=== PATIENT | male | born 1935 | race Caucasian/White ===

== ENCOUNTER → 2017-12-14 08:55 | Outpatient (POV) | payer MEDICARE, SELFPAY | PROVIDERS: Visit Provider Internal Medicine | DX: Z00.00 Encounter for general adult medical examination without abnormal findings (principal) ==

== ENCOUNTER → 2018-06-28 10:56 | Outpatient (POV) | payer MEDICARE, SELFPAY | PROVIDERS: Visit Provider Internal Medicine | DX: Z00.00 Encounter for general adult medical examination without abnormal findings (principal) ==

== ENCOUNTER → 2019-03-21 10:19 | Outpatient (POV) | payer MEDICARE, SELFPAY | PROVIDERS: Visit Provider Internal Medicine | DX: Z00.00 Encounter for general adult medical examination without abnormal findings (principal) ==

== ENCOUNTER → 2021-03-26 11:13 | Outpatient (CLI) | payer MEDICARE, SELFPAY | LOC: LAB 11:16 → RAD 11:20 | PROVIDERS: Visit Provider Family Medicine | DX: R11.0 Nausea (principal) ==

== ENCOUNTER 2022-11-01 04:51 | Observation (INO) | payer MEDICARE, SELFPAY ==
[2022-11-01] VITALS (18 sets, daily range): BP systolic 117–182; BP diastolic 65–72; PULSE 56–92; RESP 18–26; TEMP 36.7–37.3; O2SAT 85–97; BMI 22.5; BMI 23.4
--- NOTE | 2022-11-01 04:45 | ECG_ITS ---
APPROVED REPORT Exam: Resting ECG HR:94 bpm ECG Measurements Heart Rate 94 AXES QRSd 135 QRS 91 QT 385 T 74 QTc 437 Conclusion ATRIAL FIBRILLATION WITH ABERRANT CONDUCTION OR VENTRICULAR PREMATURE COMPLEXES BORDERLINE RIGHT AXIS DEVIATION [QRS AXIS > 90] INTRAVENTRICULAR CONDUCTION DELAY [130+ ms QRS DURATION] ANTEROSEPTAL MYOCARDIAL INFARCTION , OF INDETERMINATE AGE [40+ ms Q WAVE IN V1-V4] ABNORMAL ECG UNCONFIRMED REPORT Electronically signed by : Joe Briceno MD 11/02/2022 18:54:24
[2022-11-01 04:46] LABS: ABG Base Excess -4.9 mmol/L (-2.4-2.3); ABG HCO3 21.2 mmhg (22.0-26.0); ABG Oxygen Saturation 96 % (90-100); ABG PCO2 42.4 mmhg (35.0-45.0); ABG PH 7.32 mmol/L (7.35-7.45); ABG PO2 82.9 mmhg (80-100); ABG TCO2 22.5 mmhg (23-27)
--- NOTE | 2022-11-01 04:48 | XR_ITS ---
PROCEDURE INFORMATION: Exam: XR Chest Exam date and time: 11/01/2022 5:07 AM Age: 86 years old Clinical indication: Shortness of breath; Additional info: SOA TECHNIQUE: Imaging protocol: Radiologic exam of the chest. Views: 1 view. COMPARISON: CR CXR1 CHEST-PORTABLE 08/23/2016 9:49 PM FINDINGS: Lungs: Hyperinflation. Chronic interstitial and other changes.. No consolidation. Pleural spaces: Unremarkable. No pleural effusion. No pneumothorax. Heart/Mediastinum: Unremarkable. No cardiomegaly. Bones/joints: Unremarkable. IMPRESSION: No acute findings.
[2022-11-01 04:49] LABS: Oxygen 4LPM %; Source L RADIAL
--- NOTE | 2022-11-01 04:49 | HMH.EDSOB ---
Discharge Plan Disposition Patient Disposition: Admitted As Inpatient Chief Complaint: Shortness of Breath/Dyspnea Prescriptions Prescriptions: No Action lisinopril 20 mg tablet 20 mg PO DAILY Qty: 30 5RF carvedilol [Coreg] 6.25 mg tablet 6.25 mg PO BID Qty: 60 4RF Rx Instructions: give with food (meal/snack) Clinical Impressions Clinical Impression: Acute exacerbation of chronic obstructive airways disease, Congestive heart failure, Diabetes mellitus, CRI (chronic renal insufficiency) Discharge ED Provider: Chetan (ED)Dawood Resp/SOB HPI General Chief Complaint: Shortness of Breath/Dyspnea Stated Complaint: SOA Time Seen by Provider: 11/01/22 04:49 Mode of Arrival: EMS Source of Information: Patient, EMS and Medical Record Limitations: No Limitations Description of Symptoms (Recalled from ER Triage Doc. by RN): PATIENT REPORTS BECAME SOA TONIGHT. PATIENT TOOK A BREATHING TX AT HOME AND DID NOT IMPROVE SO HE CALLED EMS. REPORTS HE HAS HAD A COUGH FOR 3 DAYS. NONPRODUCTIVE. History of Present Illness cough and congestion with hx of copd and o2 at 2l at night and increased sx despite treatment at home MD Complaint: shortness of breath and cough Onset (ago): day(s) Severity: moderate Consistency/Duration: intermittent Known history of: COPD Treatment prior to arrival: oxygen and bronchodilator Related Data Home oxygen amount: 2 liters Previous Rx's Medication Instructions Recorded lisinopril 20 mg tablet 20 mg PO DAILY #30 tabs 08/09/18 carvedilol 6.25 mg tablet (Coreg) 6.25 mg PO BID #60 tabs 05/09/19 Allergies Allergy/AdvReac Type Severity Reaction Status Date / Time No Known Allergies Allergy Unverified 08/31/17 14:44 [facility] Disclaimer: The information contained in this section may have been updated after the patient was seen, as this information can be updated by other users. Medical History (Updated 11/01/22 @ 05:25 by Dawood Benton (ED)MD) Diabetes Emphysema lung Hypertension Surgical History (Updated 11/01/22 @ 05:23 by Katia Dennis RN) History of cholecystectomy Social History Smoking Status: Former smoker alcohol intake: never current occupational status: retired Travel in the last 8 weeks: None ROS Obtained: Yes All systems reviewed & no additional complaints except as documented Physical Exam General General appearance: alert Head Head exam: normocephalic Eye Eye exam: Present PERRL and EOMI ENT ENT exam: Present mucous membranes dry Neck Neck exam: Present trachea midline Respiratory Respiratory exam: Present wheezes and prolonged expiratory phase; Absent respiratory distress Cardiovascular Cardiovascular exam: Present irregular rhythm, systolic murmur and +S4 Abdominal Exam Abdominal exam: Present soft Extremities Exam Extremities exam: Present edema; Absent calf tenderness Neurological Exam Neurological exam: Present alert, oriented X3 and CN II-XII intact; Absent motor sensory deficit Psychiatric Psychiatric exam: Present normal affect Skin Skin exam: Absent rash Medical Decision Making Medical Records Medical records reviewed: Yes I reviewed the patient's medical records. Natanael Inquiry Pt receiving controlled substance: No Vital Signs: 11/01/22 04:42 Temperature 98.5 F Temperature Source Oral Pulse Rate [Right Brachial] 83 Respiratory Rate 24 Blood Pressure [Right Arm] 182/68 H Blood Pressure Mean [Right Arm] 106 Blood Pressure Source [Right Arm] Automatic Cuff Blood Pressure Position [Right Arm] Sitting 02 Sat by Pulse Oximetry 85 L Oxygen Delivery Method Room Air Lab Data Lab results reviewed: Yes I reviewed the patient's lab results. Lab Results 11/01/22 04:40: WBC 8.7, RBC 4.48 L, Hgb 13.1 L, Hct 40.1 L, MCV 89.7, MCH 29.4, MCHC 32.8, RDW 14.0, Plt Count 174, MPV 8.5, Neut % (Auto) 79.0, Lymph % (Auto) 11.3, [place] % (Auto) 6.9, Eos % (Auto) 2.4, Baso % (Auto) 0.4, Neut # (Auto) 6.9, Lymph #
[2022-11-01 04:53] LABS: Coronavirus 19, PCR Not Detected (NotDetected); Influenza A, PCR Not Detected (NotDetected); Influenza B, PCR Not Detected (NotDetected)
[2022-11-01 04:55] LABS: Basophils % 0.4 % (0.1-2.0); Eosinophils # 0.2 K/mm3 (0.0-0.4); Eosinophils % 2.4 % (0.1-12.0); Hematocrit 40.1 % (42.0-52.0); Hemoglobin 13.1 g/dL (14.1-18.0); Lymphocytes % 11.3 % (10-50); Mean Corpuscular HGB Conc 32.8 g/dL (31.8-35.4); Mean Corpuscular Hemoglobin 29.4 pg (27.0-31.2); Mean Corpuscular Volume 89.7 fl (80-94); Mean Platelet Volume 8.5 fl (7.4-10.4); Monocytes # 0.6 K/mm3 (0.1-1.0); Monocytes % 6.9 % (1.7-9.3); Neutrophils # 6.9 K/mm3 (1.8-7.8); Platelet Count 174 K/mm3 (142-424); Red Blood Count 4.48 M/mm3 (4.60-6.20); White Blood Count 8.7 K/mm3 (4.8-10.8)
[2022-11-01 05:00] LABS: Chloride 105 mmol/L (98-107); Sodium 142 mmol/L (136-145)
[2022-11-01 05:01] LABS: Potassium 4.8 mmoL/L (3.5-5.1)
[2022-11-01 05:03] LABS: Alanine Aminotransferase 57 U/L (12-78); Alkaline Phosphatase 209 U/L (38-126); Aspartate Amino Transferase 44 U/L (17-59); Bilirubin,Total 0.8 mg/dl (0.2-1.3); Blood Urea Nitrogen 41 mg/dl (9-20); Creatinine Clearance Estimated 24 mL/min (50-200); Estimated Glomerular Filt Rate 30 ml/min (>60); GFR (African American) 37 ML/MIN (>60)
[2022-11-01 05:04] LABS: Albumin/Globulin Ratio 1.3 (1.1-1.8); Anion Gap 14.8 mEq/L (5-15); Calcium 7.7 mg/dl (8.4-10.2); Carbon Dioxide 27 mmol/L (22.0-30.0); Globulin 3.2 g/dL (1.3-3.2); Glucose 282 mg/dl (74-100); Lactic Acid 1.9 mmol/L (0.7-2.1); Total Protein,Serum 7.2 g/dl (6.3-8.2)
--- NOTE | 2022-11-01 05:12 | PC.NURSE ---
PATIENT GIVEN A URINAL AND INSTRUCTED TO RING OUT FOR ASSISTANCE NEEDED. PATIENT VERBALIZED UNDERSTANDING.
[2022-11-01 05:13] LABS: NT Pro Brain Natriuretic Pep. 8040 pg/mL (0-450)
[2022-11-01 05:16] LABS: Troponin I 0.03 ng/ml (0.00-0.034)
--- NOTE | 2022-11-01 05:24 | PC.NURSE ---
DR. BETTS SPEAKING WITH ISMAEL THRASHER REGARDING ADMISSION
[2022-11-01 05:32] LABS: Hemoglobin A1C 7.7 % (4.0-6.0)
--- NOTE | 2022-11-01 05:53 | EXP.HP ---
History of Present Illness *Admission Date: 11/01/22 *Reason for visit:: shortness of breath *History of present illness: this is an 86-year-old male with a past medical history of COPD, CHF, DM who presents to the emergency department today with complaints of shortness of breath. He is on 2 L of oxygen at baseline and has had increase his oxygen to 4 L. Room air oxygen saturation on arrival was 85%. Patient reports sudden onset of worsening shortness of breath around 230 this a.m. when he awoke from sleep. He does endorse sputum production over the last several days. He also endorses some chest tightness associated with his shortness of breath. He describes bilateral lower extremity edema that has been persistent. He does endorse diuretic use at home and has been compliant. He denies chest pain, fever, nausea, vomiting, diarrhea or any sick contacts. emergency department work-up significant for diffuse wheezing noted on exam. Elevated BNP of 8000. Chest x-ray without any acute findings. He was medicated with steroids and DuoNebs in the emergency department and persistent with diffuse wheezing and shortness of breath. He will be admitted to the hospital service for further evaluation. [facility] Disclaimer: The information contained in this section may have been updated after the patient was seen, as this information can be updated by other users. Medical History (Updated 11/01/22 @ 10:09 by Ruth Bond RN) COPD (chronic obstructive pulmonary disease) Diabetes Emphysema lung Heart failure Hypertension Surgical History History of cholecystectomy Family History (Updated 11/01/22 @ 10:07 by Ruth Bond RN) No significant family history Social History (Updated 11/01/22 @ 10:07 by Ruth Bond RN) Smoking Status: Former smoker alcohol intake: never current occupational status: retired Travel in the last 8 weeks: None Review of Systems Review of Systems Review of systems:: pertinent systems reviewed and negative unless documented below *Cardiovascular Cardiovascular: Reports as per HPI *Respiratory Respiratory: Reports as per HPI Meds Home Medications and Allergies Home Medications Medication Instructions Recorded Confirmed Type ipratropium 0.5 mg-albuterol 3 mg 3 ml inhalation Q4H Breathing 11/01/22 11/01/22 History (2.5 mg base)/3 mL nebulization problems soln New Prescriptions to Start Prescriptions: Allergies Allergy/AdvReac Type Severity Reaction Status Date / Time No Known Allergies Allergy Unverified 08/31/17 14:44 Exam Data for Last 24 hours Vital signs and Labs for Last 24 Hours: Temp Pulse Resp BP Pulse Ox 98.5 F 82 20 172/72 H 97 11/01/22 04:42 11/01/22 05:31 11/01/22 05:31 11/01/22 05:31 11/01/22 05:47 Laboratory Results - last 24 hr 11/01/22 04:40: WBC 8.7, RBC 4.48 L, Hgb 13.1 L, Hct 40.1 L, MCV 89.7, MCH 29.4, MCHC 32.8, RDW 14.0, Plt Count 174, MPV 8.5, Neut % (Auto) 79.0, Lymph % (Auto) 11.3, [place] % (Auto) 6.9, Eos % (Auto) 2.4, Baso % (Auto) 0.4, Neut # (Auto) 6.9, Lymph # (Auto) 1.0, [place] # (Auto) 0.6, Eos # (Auto) 0.2, Baso # (Auto) 0.0 11/01/22 04:40: Sodium 142, Potassium 4.8, Chloride 105, Carbon Dioxide 27, Anion Gap 14.8, BUN 41 H, Creatinine 2.10 H, Estimated Creat Clear 24, Estimated GFR 30 L, Est GFR ( Amer) 37 L, Glucose 282 H, Calcium 7.7 L, Total Bilirubin 0.8, AST 44, ALT 57, Alkaline Phosphatase 209 H, Troponin I 0.03, NT-Pro-B Natriuret Pep 8040 H, Total Protein 7.2, Albumin 4.0, Globulin 3.2, Albumin/Globulin Ratio 1.3 11/01/22 04:40: Lactate 1.9 11/01/22 04:40: SARS-CoV-2 (PCR) Not detected, Influenza A Untype (PCR) Not detected, Influenza Type B (PCR) Not detected 11/01/22 04:40: Hemoglobin A1c 7.7 H 11/01/22 04:44: Specimen Source L radial, O2 % 4lpm, ABG pH 7.32 L, ABG pCO2 42.4, ABG pO2 82.9, ABG HCO3 21.2 L, ABG Total CO2 22.5 L, A
[2022-11-01 05:55] LABS: T4 (Thyroxine) 7.3 ug/dl (5.53-11.0)
[2022-11-01 06:09] LABS: Thyroid Stimulating Hormone 2.23 uIU/mL (0.465-4.68)
--- NOTE | 2022-11-01 06:11 | PC.NURSE ---
Pt arrived to floor via wheelchair @ 0610.
[2022-11-01 06:34] LABS: POC Glucose,Bedside 292 (70-110)
[2022-11-01 09:03] LABS: Troponin I 0.03 ng/ml (0.00-0.034)
[2022-11-01 11:40] LABS: Troponin I 0.03 ng/ml (0.00-0.034)
[2022-11-01 11:41] LABS: POC Glucose,Bedside 355 (70-110)
[2022-11-01 12:50] LABS: Adenovirus,PCR Not Detected (NotDetected); Bordetella Pertussis Not Detected (NotDetected); Chlamydophila Pneumoniae, PCR Not Detected (NotDetected); Coronavirus 19, PCR Not Detected (NotDetected); Coronavirus 229E Not Detected (NotDetected); Coronavirus NL63 Not Detected (NotDetected); Coronavirus OC43 Not Detected (NotDetected); Coronovirus HKU1,PCR Not Detected (NotDetected); Influenza A, PCR Not Detected (NotDetected); Influenza AH1, 2009 Not Detected (NotDetected); Influenza AH1, PCR Not Detected (NotDetected); Influenza AH3,PCR Not Detected (NotDetected); Influenza B, PCR Not Detected (NotDetected); Mycoplasma Pneumoniae, PCR Not Detected (NotDetected); Parainfluenza 1, PCR Not Detected (NotDetected); Parainfluenza 2, PCR Not Detected (NotDetected); Parainfluenza 3, PCR Not Detected (NotDetected); Parainfluenza 4, PCR Not Detected (NotDetected); Respiratory Syncytial Virus Not Detected (NotDetected); Rhinovirus/Enterovirus Not Detected (NotDetected)
[2022-11-01 14:47] LABS: Human Metapneumovirus Detected (NotDetected)
--- NOTE | 2022-11-01 17:16 | PC.NURSE ---
pt has done well this shift. alert x4, michelle scattered wheezes heard t/o. o2 2l. no skin issues noted. pt up to chair off and on t/o day. no concerns at this time. cb within reach.
[2022-11-01 17:17] LABS: POC Glucose,Bedside 351 (70-110)
[2022-11-01 21:20] LABS: POC Glucose,Bedside 251 (70-110)
[2022-11-02] VITALS (8 sets, daily range): BP systolic 169–196; BP diastolic 70–88; PULSE 78–93; RESP 20–22; TEMP 36.9–37.2; O2SAT 88–96; BMI 22.8
[2022-11-02 06:15] LABS: POC Glucose,Bedside 161 (70-110)
--- NOTE | 2022-11-02 06:21 | PC.NURSE ---
NO ACUTE CHANGES SINCE PREVIOUS ASSESSMENT. PT HAS RESTED INTERMITTENTLY. LUNG SOUNDS HAVE FINE CRACKLES SCATTERED THROUGHOUT. REMAIN ON 2L NASAL CANNULA AND IS TOLERATING WELL. NON-PRODUCTIVE COUGH. CALL BENJAMIN WITHIN REACH.
[2022-11-02 07:05] LABS: Basophils % 0.1 % (0.1-2.0); Eosinophils % 0.1 % (0.1-12.0); Hematocrit 41.4 % (42.0-52.0); Lymphocytes # 0.4 K/mm3 (0.7-4.5); Lymphocytes % 3.9 % (10-50); Mean Corpuscular HGB Conc 31.5 g/dL (31.8-35.4); Mean Corpuscular Hemoglobin 28.3 pg (27.0-31.2); Mean Corpuscular Volume 89.7 fl (80-94); Mean Platelet Volume 8.7 fl (7.4-10.4); Monocytes # 0.5 K/mm3 (0.1-1.0); Monocytes % 4.9 % (1.7-9.3); Neutrophils % 90.9 % (37.0-80.0); Platelet Count 206 K/mm3 (142-424); Red Blood Count 4.61 M/mm3 (4.60-6.20)
[2022-11-02 07:07] LABS: MANUAL DIFFERENTIAL MANUAL DIFFERENTIAL (MANUAL DIFF)
[2022-11-02 07:10] LABS: Chloride 102 mmol/L (98-107); Sodium 140 mmol/L (136-145)
[2022-11-02 07:11] LABS: Potassium 5.3 mmoL/L (3.5-5.1)
[2022-11-02 07:13] LABS: Blood Urea Nitrogen 54 mg/dl (9-20); Creatinine Clearance Estimated 22 mL/min (50-200); Estimated Glomerular Filt Rate 26 ml/min (>60); GFR (African American) 31 ML/MIN (>60)
[2022-11-02 07:14] LABS: Anion Gap 14.3 mEq/L (5-15); Calcium 8.2 mg/dl (8.4-10.2); Carbon Dioxide 29 mmol/L (22.0-30.0); Glucose 176 mg/dl (74-100); Magnesium 1.3 mg/dl (1.6-2.3)
[2022-11-02 07:32] LABS: Lymphocytes % 4 % (10-50); Monocytes % 4 % (2-9); Neutrophils % 92 % (42-76); Platelet Estimate Normal; RBC Morphology Normal; Total Cells Counted 100
--- NOTE | 2022-11-02 09:23 | P.CONPHA_ITS ---
Pharmacy Intervention Comments: Medication reconciliation completed using external fill history and fax from external pharmacy. Per patient's pharmacy ([facility]), patient goes by Jhoan Morillo. External fill history not fully up to date.
--- NOTE | 2022-11-02 09:42 | PC.NURSE ---
Pt. triggered sepsis risk protocol. Elevated creat. (2.40), resp. 22, pulse 93, and on antibiotic therapy. Dr. Mcnair notified. Pt currently receiving 500 ml fluid bolus, no new orders at this time. Will continue to monitor closely.
--- NOTE | 2022-11-02 09:53 | EXP.PULM.CON ---
History of Present Illness History of present illness: Mr. Morillo is a 86-year-old male with reported history of COPD, CHF and diabetes. He presented to the ER with worsening respiratory distress, cough and productive phlegm for the last 4 to 5 days along with increasing oxygen requirements, presented to the ER admitted and pulmonary was consulted for their evaluation. [facility] Disclaimer: The information contained in this section may have been updated after the patient was seen, as this information can be updated by other users. Medical History (Updated 11/02/22 @ 10:54 by Gennaro Osorio MD) Acute and chronic respiratory failure, unspecified whether with hypoxia or hypercapnia COPD (chronic obstructive pulmonary disease) Diabetes Emphysema lung Heart failure Hypertension Pneumonia Surgical History History of cholecystectomy Family History (Updated 11/01/22 @ 10:07 by Ruth Bond RN) Other No significant family history Social History (Updated 11/01/22 @ 10:07 by Ruth Bond, RN) Smoking Status: Former smoker alcohol intake: never current occupational status: retired Travel in the last 8 weeks: None Review of Systems Constitutional Constitutional: Reports anorexia, Reports body ache(s) and Reports fatigue Eyes Eyes: Denies eye discharge, Denies dry eyes, Denies irritation and Denies itchy eyes ENT Ears, Nose, Mouth, and Throat: Denies epistaxis, Denies facial pain, Denies lip swelling and Denies throat swelling *Cardiovascular Cardiovascular: Reports dyspnea, Reports dyspnea on exertion, Reports leg edema and Reports orthopnea *Respiratory Respiratory: Reports chest congestion, Reports cough, Reports dyspnea, Reports dyspnea on exertion, Reports excessive phlegm production and Reports wheezing *Gastrointestinal Gastrointestinal: Denies abdominal pain, Denies belching and Denies cramping *Musculoskeletal Musculoskeletal: Reports back pain, Reports myalgias and Reports other (No small joint swelling or Pain) Psychiatric Psychiatric: Denies homicidal ideation and Denies suicidal ideation Endocrine Endocrine: Reports fatigue and Denies heat intolerance Hematologic/Lymphatic Hematologic/Lymphatic: Denies easy bleeding and Denies lymphadenopathy Allergic/Immunologic Allergic/Immunologic: Denies itchy eyes, Denies lip swelling, Denies throat swelling and Reports wheezing Pulmonology Exam Inpatient Vital signs and Labs for Last 24 Hours: Temp Pulse Resp BP Pulse Ox FiO2 99.0 F 93 H 22 180/70 H 94 L 28 11/02/22 08:00 11/02/22 08:00 11/02/22 08:00 11/02/22 08:00 11/02/22 08:00 11/01/22 18:51 Laboratory Results - last 24 hr 11/01/22 11:05: Troponin I 0.03 11/01/22 11:31: POC Glucose 355 H* 11/01/22 12:30: Chlamy pneumoniae PCR Not detected, Adenovirus (PCR) Not detected, B. pertussis DNA (PCR) Not detected, Coronavirus OC43 (PCR) Not detected, Coronavirus HKU1 (PCR) Not detected, Coronavirus 229E (PCR) Not detected, SARS-CoV-2 (PCR) Not detected, Coronavirus NL63 (PCR) Not detected, Human Metapneumovir PCR Detected A, Influenza A (H1) PCR Not detected, Influ A (H1N1/09) PCR Not detected, Influenza A (H3) PCR Not detected, Influenza Type A (PCR) Not detected, Influenza Type B (PCR) Not detected, M. pneumoniae (PCR) Not detected, Parainfluenza 1 (PCR) Not detected, Parainfluenza 2 (PCR) Not detected, Parainfluenza 3 (PCR) Not detected, Parainfluenza 4 (PCR) Not detected, RSV (PCR) Not detected, Entero/Rhino (PCR) Not detected 11/01/22 16:38: POC Glucose 351 H* 11/01/22 20:30: POC Glucose 251 H 11/02/22 06:01: POC Glucose 161 H 11/02/22 06:40: WBC 11.0 H D, RBC 4.61, Hgb 13.0 L, Hct 41.4 L, MCV 89.7, MCH 28.3, MCHC 31.5 L, RDW 14.0, Plt Count 206, MPV 8.7, Neut % (Auto) 90.9 H, Lymph % (Auto) 3.9 L, [place] % (Auto) 4.9, Eos % (Auto) 0.1, Baso % (Auto) 0.1, Neut # (Auto) 10.0 H, Lymph # (Auto) 0.4 L, [place] # (Auto) 0.5, Eos # (Auto) 0.0, B
[2022-11-02 11:25] LABS: POC Glucose,Bedside 219 (70-110)
--- NOTE | 2022-11-02 11:30 | HMH.PTEV ---
Physical Therapy Evaluation Rehab PT IP Evaluation Start: 11/02/22 09:22 Freq: ONCE Status: Active Protocol: Document 11/02/22 11:22 PHOCHRISTOPHER (Rec: 11/02/22 11:30 PHORNE [id number]) Subjective/History History History 86 yowm adm to [facility] with COPD exac. He reports he lives alone, ramp to enter the home and he is generally independent with all mobility. He reports he uses oxygen via [place] at night only at baseline. Subjective Subjective Pt has no c/o this am, reports feeling much better. Rehab PT IP Eval Objective Appearance Patient Behavior Appropriate Patient Orientation Person,Place,Time Difficulty following instructions none Speech Pattern Clear Ambulation Patient Able to Ambulate Yes Ambulation Observation IP General Gait Pattern Observation Wide Based Gait Ambulation Distance (feet) 30 Ambulation Assistive Device None Ambulation Ability Supervision/Stand by Balance Ability to Arise Able, uses arms to help Sitting Balance Steady, safe Standing Balance Steady, wide stance Dynamic Sitting Balance Ability Good Dynamic Standing Balance Ability Fair Transfers Bed Transfer Ability Supervision/Stand by Chair Transfer Ability Supervision/Stand by Sit to Stand Bed Transfer Ability Supervision/Stand by Sit to Stand Chair Transfer Ability Supervision/Stand by Rehab PT IP prob,goals,plan Problems Date of Evaluation: 11/02/22 PT IP Problems Bed Mobility,Transfers,Gait Rehab Potential Rehab Potential Good Equipment Needs Assistive Devices None / NA Plan PT Intervention Plan Bed Mobility,Transfers,Gait, Therapeutic Exercise PT Plan Frequency Daily Duration LOS Discharge Goals Bed Transfer Ability Independent Sit to Stand Chair Transfer Ability Independent Ambulation Assistive Device None Ambulation Distance (feet) 40 Discharge Plan PT Discharge Plan Pt is appropriate to return home once medically stable, recommend home health therapy upon d/c. G -code Required No Eval Complexity Eval Charge Codes 76105 - Moderate Complexity PHYSICIAN CERTIFICATION: I certify the specified therapy services for Bernabe Morillo are required, authorized, and reviewed every 30 days.
--- NOTE | 2022-11-02 12:36 | SW/DCPLANNER ---
I spoke with this patient regarding discharge plans. PT/OT evaluated patient and recommended home health services. I followed up with patient this afternoon regarding recommendations. Patient stated that he is not interested in home health at this time. Patient also stated that he has family members that live next door to him and check on him daily. I have updated MD.
--- NOTE | 2022-11-02 14:22 | EXP.ACUTE.PN ---
Subjective *Date: 11/02/22 *Time: 14:22 Interval history: Stable this morning on 2 L nasal cannula. Room air saturation of 88%. Denies nausea or chest pain. Feels short of breath 3 to 4 hours after breathing treatment, requesting if we can increase frequency. Afebrile, hemodynamically stable. Labs noted to have increase in creatinine. Tolerating good p.o. intake with adequate urine output Medical Exam Vital signs and Labs for Last 24 Hours: Vital Signs Temp Pulse Pulse Resp BP Pulse Ox FiO2 11/02/22 11:37 92 H 11/02/22 11:37 92 H 11/02/22 08:00 99.0 F 93 H 22 180/70 H 94 L 11/02/22 07:43 88 L 11/02/22 06:07 79 11/02/22 06:07 83 11/02/22 06:07 93 L 11/02/22 05:00 169/70 H 11/02/22 04:00 98.4 F 78 20 193/81 H 96 11/01/22 23:27 71 11/01/22 23:26 73 11/01/22 20:00 98.6 F 76 20 174/70 H 93 L 11/01/22 18:51 28 11/01/22 18:51 77 11/01/22 18:50 87 11/01/22 16:00 98.4 F 56 L 18 176/66 H 96 Intake and Output 11/01/22 11/02/22 11/02/22 23:59 07:59 15:59 Intake Total 360 / 960 600 / 600 Output Total 400 / 1100 550 / 1200 650 / 1200 Balance -40 / -140 -550 / -600 -50 / -600 Intake: Intake, Oral Amount 360 / 960 600 / 600 Output: Output, Urine Amount 400 / 1100 550 / 1200 650 / 1200 Other: Number of Unmeasured Voids 1 Weight 68.356 kg Patient Weight 11/02/22 23:59 Weight 68.356 kg Laboratory Results - last 24 hr 11/01/22 12:30: Chlamy pneumoniae PCR Not detected, Adenovirus (PCR) Not detected, B. pertussis DNA (PCR) Not detected, Coronavirus OC43 (PCR) Not detected, Coronavirus HKU1 (PCR) Not detected, Coronavirus 229E (PCR) Not detected, SARS-CoV-2 (PCR) Not detected, Coronavirus NL63 (PCR) Not detected, Human Metapneumovir PCR Detected A, Influenza A (H1) PCR Not detected, Influ A (H1N1/09) PCR Not detected, Influenza A (H3) PCR Not detected, Influenza Type A (PCR) Not detected, Influenza Type B (PCR) Not detected, M. pneumoniae (PCR) Not detected, Parainfluenza 1 (PCR) Not detected, Parainfluenza 2 (PCR) Not detected, Parainfluenza 3 (PCR) Not detected, Parainfluenza 4 (PCR) Not detected, RSV (PCR) Not detected, Entero/Rhino (PCR) Not detected 11/01/22 16:38: POC Glucose 351 H* 11/01/22 20:30: POC Glucose 251 H 11/02/22 06:01: POC Glucose 161 H 11/02/22 06:40: WBC 11.0 H D, RBC 4.61, Hgb 13.0 L, Hct 41.4 L, MCV 89.7, MCH 28.3, MCHC 31.5 L, RDW 14.0, Plt Count 206, MPV 8.7, Neut % (Auto) 90.9 H, Lymph % (Auto) 3.9 L, [place] % (Auto) 4.9, Eos % (Auto) 0.1, Baso % (Auto) 0.1, Neut # (Auto) 10.0 H, Lymph # (Auto) 0.4 L, [place] # (Auto) 0.5, Eos # (Auto) 0.0, Baso # (Auto) 0.0, Total Counted 100, Neutrophils % (Manual) 92 H, Lymphocytes % (Manual) 4 L, Monocytes % (Manual) 4, Platelet Estimate Normal, RBC Morphology Normal 11/02/22 06:40: Sodium 140, Potassium 5.3 H, Chloride 102, Carbon Dioxide 29, Anion Gap 14.3, BUN 54 H D, Creatinine 2.40 H, Estimated Creat Clear 22, Estimated GFR 26 L, Est GFR ( Amer) 31 L, Glucose 176 H, Calcium 8.2 L, Magnesium 1.3 L 11/02/22 11:14: POC Glucose 219 H I & O for Labs for Last 24 Hours: Intake & Output 02/17/23 02/18/23 02/19/23 02/20/23 23:59 23:59 23:59 23:59 Intake Total 960 / 960 600 / 600 Output Total 1100 / 1100 1200 / 1200 Balance -140 / -140 -600 / -600 Weight 70.125 kg 68.356 kg Constitutional: Present no acute distress and chronically ill appearing Head: Present atraumatic and normocephalic ENT: Present normal exam Neck: Present normal inspection Respiratory: Present rhonchi, wheezes and normal respiratory effort; Absent accessory muscle use or crackles Cardiac: Present Reg Rate and Rhythm GI: Present normal bowel sounds; Absent tenderness Extremities: Present normal inspection and full ROM Skin: Present intact; Absent erythema Neuro: Present Cranial Nerve 2-12 Intact, Grossly Intact, alert, awake, oriented x 3 and mo
[2022-11-02 16:09] LABS: Chloride 102 mmol/L (98-107); Potassium 5.1 mmoL/L (3.5-5.1); Sodium 138 mmol/L (136-145)
[2022-11-02 16:12] LABS: Blood Urea Nitrogen 55 mg/dl (9-20); Creatinine Clearance Estimated 24 mL/min (50-200); Estimated Glomerular Filt Rate 29 ml/min (>60); GFR (African American) 35 ML/MIN (>60)
[2022-11-02 16:13] LABS: Anion Gap 13.1 mEq/L (5-15); Carbon Dioxide 28 mmol/L (22.0-30.0); Glucose 221 mg/dl (74-100)
[2022-11-02 16:45] LABS: POC Glucose,Bedside 218 (70-110)
--- NOTE | 2022-11-02 19:58 | EXP.DC.SUM ---
General Admission date:: 11/01/22 Discharge date: 11/02/22 HPI HPI HPI: this is an 86-year-old male with a past medical history of COPD, CHF, DM who presents to the emergency department today with complaints of shortness of breath. He is on 2 L of oxygen at baseline and has had increase his oxygen to 4 L. Room air oxygen saturation on arrival was 85%. Patient reports sudden onset of worsening shortness of breath around 230 this a.m. when he awoke from sleep. He does endorse sputum production over the last several days. He also endorses some chest tightness associated with his shortness of breath. He describes bilateral lower extremity edema that has been persistent. He does endorse diuretic use at home and has been compliant. He denies chest pain, fever, nausea, vomiting, diarrhea or any sick contacts. emergency department work-up significant for diffuse wheezing noted on exam. Elevated BNP of 8000. Chest x-ray without any acute findings. He was medicated with steroids and DuoNebs in the emergency department and persistent with diffuse wheezing and shortness of breath. He will be admitted to the hospital service for further evaluation. Hospital Course Hospital Course Hospital Course: 86-year-old male admitted for COPD exacerbation with increasing oxygen from baseline. Patient wearing 2 L continuous oxygen. Also developed CARLY during admission. Stressed the importance of serial labs to monitor for improvement after resuscitation with fluids. Patient decided to stay in the hospital any longer. Was adamant about going home whether we discharged him or not. Discussed case with son who is at bedside to pick patient up, son supportive of father's wish regardless of its impact on his health. Repeat labs showed slight improvement in creatinine this afternoon. Stressed the importance to patient that he return to the hospital if symptoms worsen. He states he has everything he needs at home to do the same treatment we are doing in the hospital. Have strong concern about high risk for decompensation. Acute exacerbation of chronic obstructive pulmonary disease Normally wears 2L only at night and uses inhalers multiple times a day. Initially on 4L during admission, weaned to 2L continuous in initial 24hrs. Pulmonology consulted, appreciate their recommendations. continue bronchodilators and corticosteroids with DuoNebs every 6 hours scheduled, every 4 hours as needed.? And prednisone 40 mg daily. Complete 5 days total of steroids. Transitioned to Augmentin 500mg TID with plan to complete 5 days total of Abx. Will need outpatient follow-up with pulmonology. Will benefit from further work-up as an outpatient with PFTs and echocardiogram. CARLY congestive heart failure BNP of 8000 on admission, responded well to diuresis however had worsening kidney function. Held lasix. administered 500cc LR over 2 hrs for gentle rehydration.? Repeat labs this afternoon to monitor creatinine.? Elevated to 2.4 this morning. Improved to 2.2 this afternoon with fluids. ?DM ?continued sliding scale? with ACHS Accu-Checks. ?A1c 7.7. Resume home meds at discharge. Patient adamant about discharge home. Refused to stay tonight. He has nebulizers at home. Sent antibiotics and steroids to outpatient pharmacy. Stressed my concern with him going home but he was adamant that there was nothing we were doing here that he could not do at home. Recommend repeat labs in a week follow-up. We will set up close follow-up with pulmonology. Stressed the importance of if he gets worse to come back to the hospital JAMES. Patient states understanding. Exam Data for Last 24 hours Vital signs and Labs for Last 24 Hours: Temp Pulse Resp BP Pulse Ox FiO2 98.6 F 82 20 196/88 H 94 L 28 11/02/22 16:00 11/02/22 16:42 11/02/22 16:00 11/02/22 16:00 11/02/22 16:00 11/01/22 18:51 Laboratory Results - last 24 hr 11/01/22 20:30: POC Glucose 251 H 11/02/22 06:01: POC Gl
--- NOTE | 2022-11-04 10:49 | CARE MANAGER ---
Called to discuss post discharge status with Mr. Morillo. He stated that he is feeling much better and has started his new medications, and is aware of scheduled f/u appointments.
== END 2022-11-02 16:50 | disposition home or self-care (01) ==
LOC: ER 05:25 → 2ND 05:58
PROVIDERS: Nurse Practitioner Acute Care; Admitting Provider Internal Medicine Adolescent Medicine; Emergency Provider Emergency Medicine; PCP Family Medicine; Visit Provider Internal Medicine Adolescent Medicine
DX: J44.1 Chronic obstructive pulmonary disease with (acute) exacerbation (principal); E11.9 Type 2 diabetes mellitus without complications; I11.0 Hypertensive heart disease with heart failure; I50.9 Heart failure, unspecified; Z87.891 Personal history of nicotine dependence; Z79.84 Long term (current) use of oral hypoglycemic drugs; Z20.822 Contact with and (suspected) exposure to COVID-19
CPT/HCPCS: G0378; 36415; 71045; 80048; 80053; 82803; 82962; 83036; 83605; 83735; 83880; 84436; 84443; 84484; 85007; 85025; 87040; 87070; 87205; 87581; 87632; 87798; 93005; 94640; 94760; 97110; 97162; 99285; C9803; J3475; U0003; U0005